=== PATIENT | male | born 1960 | race Caucasian/White ===

== ENCOUNTER 2017-10-16 23:14 | Emergency (ER) | payer MEDICARE, OTHER ==
[~2017-10-16] VITALS: Ht 180.3 cm; Wt 100.0 kg
[~2017-10-16 23:14] MED LIST: ASEN10TA SL; CALC625 PO; DOXE10CA PO; RISP3TAB23 OR; ZYPR10TA OR; ZYPR10TA PO; ZYPR20TA PO; fiberlax PO
[2017-10-16 23:27] VITALS: BP 147/77; PULSE 77; RESP 16; TEMP 97.6; O2SAT 98
== END 2017-10-17 00:14 | disposition left against medical advice (07) ==
LOC: NEDAMB 23:14
DX: F41.9 Anxiety disorder, unspecified (principal)
CPT/HCPCS: 99281

== ENCOUNTER 2017-10-17 02:58 | Emergency (ER) | payer MEDICARE ==
[~2017-10-17] VITALS: Ht 180.3 cm; Wt 98.0 kg
[2017-10-17 03:33] VITALS: BP 129/76; PULSE 75; RESP 16; TEMP 97.1; O2SAT 98
--- NOTE | 2017-10-17 04:16 | PD ---
HPI Chief Complaint: Allergic/Adverse Reaction Time Seen by Provider: 04:06 Travel History International Travel<30 days: No Contact w/Intl Traveler<30days: No Traveled to known affect area: No History of Present Illness HPI The patient is a 57 year old male who presents to the [facility] emergency department with a history of onset of numbness all over his body, fatigue, and a sensation of feeling nervous 2 hours after taking 2 [id number] tablets of ibuprofen with his new nerve medication, Lyrica. The patient reports that he started Lyrica 2 weeks ago due to a burning sensation in his extremities. The patient reports that he took the medicine at 6 PM. He reports that the symptoms of fatigue, numbness, and anxiety have gradually been improving with time. On review of systems otherwise, he denies having any known recent fevers , cough or congestion,chest pain, shortness of breath, abdominal pain, vomiting , diarrhea, urinary symptoms, or other neurologic symptoms. The patient denies being on any other new medications. The patient does report having a history of depression and schizophrenia. He denies any suicidal or homicidal ideations. [facility] Past Medical History Narrative Medical The patient's past medical history is significant for neuropathy, schizophrenia , depression, history of inguinal hernia Blood Disorders: No Anxiety: No Depression: Yes Cancer: No Cardiovascular Problems: No Diabetes: No Diminished Hearing: No Endocrine: No Gastrointestinal Disorders: No (LAST BM 11/11/10) Genitourinary: No Immune Disorder: No Inguinal Hernia: Yes (RIGHT) Implanted Vascular Access Dvce: No Musculoskeletal: No Neurologic: No Psychiatric: Yes (SCHIZOPHRENIA) Reproductive: No Respiratory: Yes Schizophrenia: Yes Past Surgical History Narrative Surgical The patient's past surgical history is significant for hernia repair, pilonidal cyst resection. Abdominal Surgery: Yes (HERNIA '85) Other Surgery: Yes (Pilonidal Cyst per patient.) Social History Alcohol Use: No (STATES " USE RARELY") Tobacco Use: Yes (2 PPD) Substance Use: No Allergies-Medications (Allergen,Severity, Reaction): Coded Allergies: fluphenazine (Unverified Allergy, Severe, PATIENT STATES"MADE ME NERVOUS" , 10/17/17) haloperidol (Unverified Allergy, Severe, 10/17/17) clozapine (Unverified Adverse Reaction, Intermediate, 4/10/18) AGRANULOCYTOSIS Reported Meds & Prescriptions Reported Meds & Active Scripts Active Reported Fiber Con (Calcium Polycarbophil) 625 Mg Tab 625 Mg PO BID Risperdal (Risperidone) 3 Mg Tab 3 Mg OR BIDAC Zyprexa (Olanzapine) 10 Mg Tab 10 Mg OR DAILY Zyprexa (Olanzapine) 20 Mg Tab 20 Mg PO HS Zyprexa (Olanzapine) 10 Mg Tab 10 Mg PO DAILY [fiberlax] 625 Mg PO BID Sinequan (Doxepin HCl) 10 Mg Cap 10 Mg PO HS Saphris (Asenapine) 10 Mg Sub 10 Mg SL DAILY Review of Systems Except as stated in HPI: all other systems reviewed are Neg General / Constitutional: No: Fever Eyes: No: Visual changes HENT: No: Headaches Cardiovascular: No: Chest Pain or Discomfort, Dyspnea on exertion Respiratory: No: Shortness of Breath Gastrointestinal: No: Nausea, Vomiting, Diarrhea, Abdominal Pain Genitourinary: No: Dysuria Musculoskeletal: No: Pain Skin: No Rash Neurologic: Positive: Weakness (Fatigue), Paresthesia, No: Focal Abnormalities , Change in Mentation, Slurred Speech Psychiatric: Positive: Anxiety, No: Depression, Suicidal Ideations, Mood Disorder, Homicidal Ideation Endocrine: No: Polydipsia Hematologic/Lymphatic: No: Easy Bruising Physical Exam Narrative General: The patient is a well-developed well-nourished male in no acute distress. Head and Neck exam: Head is normocephalic atraumatic. Eyes: EOMI, pupils are equal round and reactive to light. Nose: Midline septum with pink mucous membranes Mouth: Dentition unremarkable. Moist mucus membranes. Posterior oropharynx is not erythematous. No tonsillar hypertrophy. Uvula midline. Airway patent. Neck: No palpable lymphadenopathy. No nuchal rigidity. No thyromegaly. Cardiovascular: Regular rate and rhythm without murmurs, gallops, or rubs. No pulse deficit to the extremities on simultaneous auscultation and palpation of his radial artery. Lungs: Clear to auscultation bilaterally. No wheezes, rhonchi, or rales. Abdomen: Soft, without tenderness to palpation in all 4 quadrants of the abdomen. No guarding, rebound, or rigidity. Normal bowel sounds are audible. No tenderness on palpation of McBurney's point. Extremities: No clubbing, cyanosis, or edema. 2+ pulses in all 4 extremities. No calf tenderness on palpation. Back: No spinous process tenderness to palpation. No costovertebral angle tenderness to palpation. Neurologic Exam: Cranial nerves 2-12 were intact on exam. Strength is 5/5 in all 4 extremities. No sensory deficits noted. Skin Exam: No rash noted. Intact skin that is warm and dry. Data Data Last Documented VS Vital Signs Date Time Temp Pulse Resp B/P (MAP) Pulse Ox O2 Delivery O2 Flow Rate FiO2 10/17/17 04:49 98 Room Air 10/17/17 03:33 97.1 75 16 129/76 (93) Orders Orders Electrocardiogram (10/17/17 04:32) Complete Blood Count With Diff (10/17/17 04:32) Comprehensive Metabolic Panel (10/17/17 04:32) Magnesium (Mg) (10/17/17 04:32) Thyroid Stimulating Hormone (10/17/17 04:32) Iv Access Insert/Monitor (10/17/17 04:32) Ecg Monitoring (10/17/17 04:32) Oximetry (10/17/17 04:32) Ed Discharge Order (10/17/17 06:16) Labs Laboratory Tests Test 10/17/17 04:44 White Blood Count 6.3 TH/MM3 Red Blood Count 5.09 MIL/MM3 Hemoglobin 15.3 GM/DL Hematocrit 43.0 % Mean Corpuscular Volume 84.5 FL Mean Corpuscular Hemoglobin 29.9 PG Mean Corpuscular Hemoglobin Concent 35.4 % Red Cell Distribution Width 14.2 % Platelet Count 211 TH/MM3 Mean Platelet Volume 7.5 FL Neutrophils (%) (Auto) 73.6 % Lymphocytes (%) (Auto) 20.6 % Monocytes (%) (Auto) 5.3 % Eosinophils (%) (Auto) 0.1 % Basophils (%) (Auto) 0.4 % Neutrophils # (Auto) 4.6 TH/MM3 Lymphocytes # (Auto) 1.3 TH/MM3 Monocytes # (Auto) 0.3 TH/MM3 Eosinophils # (Auto) 0.0 TH/MM3 Basophils # (Auto) 0.0 TH/MM3 CBC Comment DIFF FINAL Differential Comment Blood Urea Nitrogen 3 MG/DL Creatinine 0.88 MG/DL Random Glucose 101 MG/DL Total Protein 7.4 GM/DL Albumin 3.8 GM/DL Calcium Level 8.7 MG/DL Magnesium Level 2.3 MG/DL Alkaline Phosphatase 71 U/L Aspartate Amino Transf (AST/SGOT) 15 U/L Alanine Aminotransferase (ALT/SGPT) 36 U/L Total Bilirubin 0.5 MG/DL Sodium Level 139 MEQ/L Potassium Level 4.5 MEQ/L Chloride Level 103 MEQ/L Carbon Dioxide Level 28.8 MEQ/L Anion Gap 7 MEQ/L Estimat Glomerular Filtration Rate 90 ML/MIN Thyroid Stimulating Hormone 3rd Gen 0.682 uIU/ML MDM Medical Decision Making Medical Screen Exam Complete: Yes Emergency Medical Condition: Yes Medical Record Reviewed: Yes Differential Diagnosis Medication side effect, versus electrolyte arrangements such as hypokalemia, versus hypomagnesemia, versus hypercalcemia, versus endocrine abnormality such as hypothyroid disorder, versus exacerbation of paranoid delusions with schizophrenia Narrative Course During the course of the patient's emergency department visit, the patient's history, examination, and differential diagnosis were reviewed with the patient. The patient was placed on a knit tubing dyer with oximetry and frequent blood pressure monitoring. The patient had IV access obtained and blood work sent for analysis. The patient's laboratory studies were reviewed and remarkable for: 10/17/17 04:44 Total Protein 7.4, Albumin 3.8, Calcium Level 8.7, Magnesium Level 2.3, Alkaline Phosphatase 71, Aspartate Amino Transf (AST/SGOT) 15, Alanine Aminotransferase (ALT/SGPT) 36, Total Bilirubin 0.5 I suspect that the patient's symptoms are related to the side effects of the ibuprofen administration with his new Lyrica. I recommended that he avoid this medication combination in the future The patient is resting comfortably and feels better, is alert and in no distress. The patient's results and examination findings were discussed with the patient. The repeat examination is unremarkable and benign. The history, exam, diagnostic testing, and current condition do not suggest any significant pathology to warrant further testing, continued ED treatment, admission, or surgical evaluation at this point. The vital signs have been stable. The patient does not have uncontrollable pain, intractable vomiting, or other significant symptoms. The patient's condition is stable and appropriate for discharge. The patient will pursue further outpatient evaluation with a primary care physician or other designated or consulting physician as indicated in the discharge instructions. The patient expressed understanding and was agreeable with this plan. Diagnosis Primary Impression: Medication side effect Referrals: Primary Care Physician 1 week Med/Other Pt SpecificInfo: No Change to Meds Disposition: 01 DISCHARGE HOME Condition: Stable Geno Vidal MD Oct 17, 2017 04:16
[2017-10-17 04:49] VITALS: O2SAT 98
[2017-10-17 04:54] LABS: AUTOMATED NEUTROPHIL # 4.6 TH/MM3 (1.8-7.7); BASOPHIL % 0.4 % (0.0-2.0); EOSINOPHIL % 0.1 % (0.0-4.0); HEMOGLOBIN 15.3 GM/DL (13.0-17.0); LYMPH % 20.6 % (9.0-44.0); LYMPHOCYTE # 1.3 TH/MM3 (1.0-4.8); MEAN CELL VOLUME 84.5 FL (80.0-100.0); MEAN CORPUSCULAR HEMOGLOBIN 29.9 PG (27.0-34.0); MEAN CORPUSCULAR HGB CONC 35.4 % (32.0-36.0); MEAN PLATELET VOLUME 7.5 FL (7.0-11.0); MONO % 5.3 % (0.0-8.0); MONOCYTE # 0.3 TH/MM3 (0-0.9); NEUT % 73.6 % (16.0-70.0); PLATELET COUNT 211 TH/MM3 (150-450); RED BLOOD COUNT 5.09 MIL/MM3 (4.50-5.90); RED CELL DISTRIBUTION WIDTH 14.2 % (11.6-17.2); WHITE BLOOD COUNT 6.3 TH/MM3 (4.0-11.0)
[2017-10-17 05:27] LABS: ALBUMIN 3.8 GM/DL (3.4-5.0); ALT (GPT) 36 U/L (12-78); AST (GOT) 15 U/L (15-37); BICARBONATE 28.8 MEQ/L (21.0-32.0); BLOOD UREA NITROGEN 3 MG/DL (7-18); CALCIUM 8.7 MG/DL (8.5-10.1); CHLORIDE 103 MEQ/L (98-107); CREATININE 0.88 MG/DL (0.60-1.30); GLOMERULAR FILTRATION RATE 90 ML/MIN (>89); GLUCOSE,RANDOM 101 MG/DL (74-106); MAGNESIUM 2.3 MG/DL (1.5-2.5); SODIUM (NA) 139 MEQ/L (136-145)
[2017-10-17 05:37] LABS: ALKALINE PHOSPHATASE 71 U/L (45-117); TOTAL BILIRUBIN ADULT 0.5 MG/DL (0.2-1.0); TOTAL PROTEIN 7.4 GM/DL (6.4-8.2)
--- NOTE | 2017-10-17 07:56 | EKG ---
Date Performed: 10/17/2017 Time Performed: 04:43:38 PTAGE: 57 years EKG: Sinus rhythm NORMAL ECG No significant change from prior electrocardiogram. PREVIOUS TRACING : 08/19/2001 13.28 DOCTOR: Albert Shahid Interpretating Date/Time 10/17/2017 07:55:54
[2017-10-17 09:05] VITALS: BP 126/84
== END 2017-10-17 08:40 | disposition home or self-care (01) ==
LOC: NEPC 02:58
DX: R20.0 Anesthesia of skin (principal); R53.83 Other fatigue; R45.0 Nervousness; T42.6X5A Adverse effect of other antiepileptic and sedative-hypnotic drugs, initial encounter; T39.315A Adverse effect of propionic acid derivatives, initial encounter; G62.9 Polyneuropathy, unspecified; F32.9 Major depressive disorder, single episode, unspecified; F20.9 Schizophrenia, unspecified; F17.200 Nicotine dependence, unspecified, uncomplicated
CPT/HCPCS: 80053; 83735; 84443; 85025; 93005